=== PATIENT | female | born 1970 | race Caucasian/White ===

== ENCOUNTER 2024-01-11 14:08 | Inpatient (IN) | payer BC ==
[~2024-01-11] VITALS: Ht 165.1 cm; Wt 65.5 kg
[2024-01-11] VITALS (225 sets, daily range): BP systolic 136–179; BP diastolic 94–112; PULSE 112–137; TEMP 98.4; O2SAT 96–100
[2024-01-11 16:18] LABS: HEMATOCRIT 47.3 % (37.0-47.0); HEMOGLOBIN 16.5 g/dl (12.5-16.0); MEAN CELL VOLUME 89 fl (80.0-100.0); MEAN CORPUSCULAR HEMOGLOBIN 31 pg (27-31); MEAN CORPUSCULAR HGB CONC 35 g/dl (33.0-37.0); MEAN PLATELET VOLUME 10.9 fl (7.4-10.4); PLATELET COUNT 311 K/mm3 (130-400); RED BLOOD COUNT 5.32 M/mm3 (4.10-5.30); REDCELL DISTRIBUTION WIDTH-CV 12.3 % (11.5-14.5)
[2024-01-11 16:25] LABS: ACETONE,SERUM MODERATE
[2024-01-11 16:47] LABS: ALANINE AMINOTRANSFERASE 18 U/L (0-55); ALBUMIN 3.2 g/dL (3.5-5.0); ALKALINE PHOSPHATASE 270 U/L (40-150); ANION GAP 30 mmol/L (7-16); AST,SGOT 12 U/L (5-34); BILIRUBIN,TOTAL 0.5 mg/dL (0.2-1.2); BLOOD UREA NITROGEN 9 mg/dL (10-20); CALCIUM 10.3 mg/dL (8.4-10.2); CHLORIDE 97 mEq/L (98-107); SODIUM 134 mEq/L (136-145); TOTAL PROTEIN 8.4 g/dl (6.2-8.1)
[2024-01-11 16:59] LABS: ERYTHROCYTE SEDIMENTATION RATE 96 mm/hr (0-30)
[2024-01-11 17:07] LABS: C-REACTIVE PROTEIN 35.13 mg/dL (0.00-0.50); GLUCOSE 451 mg/dL (70-99)
[2024-01-11] MEDS ORDERED: NS 1,000 ML IV ONE ×2 (17:15→17:45)
[2024-01-11 17:30] LABS: BAND 9 % (0-10); LYMPHOCYTE 4 % (20.0-51.0); METAMYELOCYTE 1 % (0-0); NEUTROPHILS 84 % (42.0-75.2)
[2024-01-11] MEDS ORDERED: Insulin Human Regular/NS 100 ML IV ONE (17:30)
[2024-01-11 17:31] LABS: ANISOCYTOSIS 1+; POLYCHROMASIA 1+
[2024-01-11 17:32] LABS: PLATELET ESTIMATE INCREASED (NORMAL)
[2024-01-11] MEDS ORDERED: Ondansetron 4 MG/2 ML VIAL IV ONE (17:45)
[2024-01-11 17:52] LABS: URINE APPEARANCE CLOUDY (CLEAR/HAZY); URINE BLOOD NEGATIVE (NEGATIVE); URINE COLOR YELLOW (YELLOW); URINE GLUCOSE 3+ (NEGATIVE); URINE KETONE 4+ (NEGATIVE); URINE NITRATE NEGATIVE (NEGATIVE); URINE PROTEIN(semi-quant) 2+ (NEGATIVE); URINE UROBILINOGEN 0.2 E.U/dL (0.2-1.0)
[2024-01-11 18:25] LABS: COLLECTION METHOD CLEAN CATCH; URINE BACTERIA OCCASIONAL /hpf (NONE SEEN); URINE WBC >50 /hpf (0-2)
[2024-01-11] MEDS ORDERED: hydrALAZINE 20 MG/ML 1 ML VIAL IV PRN (18:45)
[2024-01-11] MEDS ORDERED: NS 1,000 ML IV SCH (18:45)
[2024-01-11] MEDS ORDERED: D5 1/2 NS & 20 mEq KCl 1,000 ML IV SCH (18:45)
[2024-01-11] MEDS ORDERED: Insulin Human Regular/NS 100 ML IV SCH (18:45)
--- NOTE | 2024-01-11 19:16 | NUR ---
Vancomycin Initial Dosing Pharmacy Note Ordering provider: Austyn Fisher MD Indication/duration: Sepsis secondary to urinary and skin sources LABS: SCr 1.3, CrCl~40, GFR 49 Recommendation: Will continue Vancomycin 1 gm IV q12h. Pharmacy will continue to closely monitor and check a trough on 01/13/24. Loading dose: 1.5 grams Maintenance dose: 1 gram every 12 hours Trough goal: 10-15 ug/mL
[2024-01-11 19:41] LABS: MAGNESIUM 2.3 mg/dL (1.6-2.6); PHOSPHOROUS 3.6 mg/dL (2.3-4.7)
[2024-01-11 19:48] LABS: TROPONIN-I 0.016 ng/mL (0.00-0.033)
[2024-01-11] MEDS ORDERED: Vancomycin 1.5 GM,Special Dose/Pharmacy Prepared 1.5 GM in NS 250 ML IV ONE (20:00)
[2024-01-11] MEDS ORDERED: Ondansetron 4 MG/2 ML VIAL IV PRN (20:45)
[2024-01-11] MEDS ORDERED: HYDROmorphone 0.5 MG/0.5 ML SYRINGE IV PRN (20:45)
[2024-01-11 22:47] LABS: CALCIUM 8.8 mg/dL (8.4-10.2); CREATININE, serum 0.93 mg/dL (0.57-1.11); POTASSIUM 3.1 mEq/L (3.5-4.5)
[2024-01-12] VITALS (1027 sets, daily range): BP systolic 132–150; BP diastolic 63–98; PULSE 92–118; TEMP 98.2–98.6; O2SAT 93–100
--- NOTE | 2024-01-12 00:07 | NUR ---
PATIENT ARRIVED TO UNIT AT 1945 ON 01/11/24. REPORT RECEIVED FROM [facility] RN. PATIENT ARRIVED TO UNIT BY BED, ALL BELONGINGS WITH PATIENT AT TIME OF TRANSFER. PATIENT MEDICATIONS TAKEN BY THIS RN AND SENT TO PHARMACY. CALL LIGHT WITHIN REACH. PATIENT ORIENTED TO ROOM. NO ACUTE EVENTS.
[2024-01-12 07:48] LABS: BASO % 0.2 % (0.0-2.0); EOS % 0.2 % (0.0-4.0); GRAN # 15.7 K/mm3 (1.4-6.5); GRAN % 87.7 % (42.2-75.2); HEMATOCRIT 38.1 % (37.0-47.0); LYMPH % 5.6 % (20.0-51.0); MEAN CELL VOLUME 85 fl (80.0-100.0); MEAN CORPUSCULAR HEMOGLOBIN 31 pg (27-31); MEAN CORPUSCULAR HGB CONC 37 g/dl (33.0-37.0); MEAN PLATELET VOLUME 10.2 fl (7.4-10.4); MONO % 5.6 % (1.7-9.3); PLATELET COUNT 248 K/mm3 (130-400); RED BLOOD COUNT 4.47 M/mm3 (4.10-5.30)
[2024-01-12 07:59] LABS: CALCIUM 8.8 mg/dL (8.4-10.2); CREATININE, serum 0.89 mg/dL (0.57-1.11)
[2024-01-12 08:03] LABS: POTASSIUM 2.9 mEq/L (3.5-4.5)
[2024-01-12] MEDS ORDERED: *Potassium Replacement Protocol MC SCH (09:15)
[2024-01-12] MEDS ORDERED: Potassium Bicarbonate/Citrate 20 MEQ Effervescent TAB PO SCH (09:15)
[2024-01-12] MEDS ORDERED: Famotidine 20 MG TAB PO SCH (10:25)
--- NOTE | 2024-01-12 10:43 | NUR ---
01/12/[id number] YO FEMALE ADMIT FOR INFECTED DIABETIC FOOT WOUND, NEW DIAGNOSIS OF DIABETES. GLUCOSE ON ADMIT 451 MG/DL, A1C 12.2%. PATIENT REPORTS NO FAMILY HISTORY OF DIABETES NOR GESTATIONAL DIABETES HISTORY. PATIENT REPORTS SIGNIFICANT, UNINTENTIONAL WEIGHT LOSS IN LAST 5 YEARS. REPORTED WEIGHT OF 108.8KG IN 2019 (240#) VERSUS CURRENT WEIGHT OF 65.5KG (144#). PATIENT'S IS A TYPE 2 DIABETIC AND REPORTS TAKING METFORMIN DAILY. PATIENT REFUSED TEACHING/DEMONSTRATION ON GLUCOMETER USE SHE STATES SHE ALREADY KNOWS HOW TO DO THIS AND FEELS COMFORTABLE DOING IT. REVIEWED NORMAL BLOOD SUGAR RANGES FOR FASTING (80-130MG/DL) AND 2 HR. POST MEAL (<180 MG/DL). REVIEWED 'HEALTHY PLATE' STYLE OF EATING AND RECOMMENDED PRIORITY MODIFICATIONS OF CUTTING OUT REGULAR SODA (PATIENT CURRENTLY DRINKS REGULAR COKE AND/OR DR. YANES DAILY), AND INCREASING INTAKE OF NON-STARCHY VEGETABLES AND LEAN PROTEINS. RECOMMENDED OUTPATIENT DIABETES EDUCATION. WILL SEND REFERRAL REQUEST TO PATIENT'S PCP DR. BETHEA AND ATTEMPT TO SEE THIS PATIENT IN AN OUTPATIENT SETTING. APPRECIATE THE CONSULT. KML,MS,RD,CSSD,LD
--- NOTE | 2024-01-12 10:48 | NUR ---
SW met with patient to complete initial assessment for discharge planning. Patient alert but drowsy. not present in room at time of assessment. Patient verified that she and Johnathan ([phone]) live in [place]. Patient denies havig completed a DPOA and chooses to not complete one at this time. Patient sees Dr. Raj White as her PCP and uses [facility] pharmacy. Patient denies having any DME and states that she is independent at home. No home services currently or in the past. Patient plans to return home with when medically stable. Discharge plan: Home
--- NOTE | 2024-01-12 15:21 | NUR ---
PT MEDICATIONS GIVEN TO PHARMACY TO KEEPING. RN ATTEPLTED TO CALL [facility] TO AQUIRE MEDICATION BUT THERE WAS NO ANSWER. PT IS RESTING IN BED. PAIN HAS BEEN ALLEVIATED. PT RESTING COMFORTABLY AWAKEN EASILY TO VOICE COMMANDS.
[2024-01-12 16:33] LABS: CALCIUM 8.8 mg/dL (8.4-10.2); CREATININE, serum 0.87 mg/dL (0.57-1.11); MAGNESIUM 1.5 mg/dL (1.6-2.6); POTASSIUM 3.2 mEq/L (3.5-4.5)
[2024-01-13] VITALS (624 sets, daily range): BP systolic 130–153; BP diastolic 72–94; PULSE 94–104; TEMP 97.5–98.4; O2SAT 94–100
[2024-01-13 00:44] LABS: ANION GAP 9 mmol/L (7-16); CALCIUM 8.6 mg/dL (8.4-10.2); CHLORIDE 114 mEq/L (98-107); CREATININE, serum 0.62 mg/dL (0.57-1.11); GLUCOSE 170 mg/dL (70-99); POTASSIUM 3.2 mEq/L (3.5-4.5); SODIUM 137 mEq/L (136-145)
[2024-01-13 00:52] LABS: BLOOD UREA NITROGEN < 5 mg/dL (10-20)
[2024-01-13] MEDS ORDERED: *Potassium Replacement Protocol MC SCH (01:00)
[2024-01-13] MEDS ORDERED: Potassium Chloride 100 ML IV SCH (01:00)
--- NOTE | 2024-01-13 07:00 | NUR ---
Report received from ELAINE Sun. Pt alert and oriented this AM. Does have some complaints on nausea and reflux; denies wanting to try some saltine crackers. PRN zofran available. PT remains on insulin gtt. Potassium replacement in progress. Call light in reach and bed alarm on. 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
[2024-01-13 08:12] LABS: BASO % 0.1 % (0.0-2.0); EOS % 0.3 % (0.0-4.0); GRAN # 9.6 K/mm3 (1.4-6.5); GRAN % 81.5 % (42.2-75.2); HEMOGLOBIN 13.3 g/dl (12.5-16.0); LYMPH # 1.2 K/mm3 (1.2-3.4); LYMPH % 10.1 % (20.0-51.0); MEAN CELL VOLUME 84 fl (80.0-100.0); MEAN CORPUSCULAR HEMOGLOBIN 32 pg (27-31); MEAN CORPUSCULAR HGB CONC 38 g/dl (33.0-37.0); MEAN PLATELET VOLUME 10.8 fl (7.4-10.4); MONO # 0.9 K/mm3 (0.1-0.6); MONO % 7.2 % (1.7-9.3); PLATELET COUNT 235 K/mm3 (130-400); RED BLOOD COUNT 4.22 M/mm3 (4.10-5.30); REDCELL DISTRIBUTION WIDTH-CV 12.1 % (11.5-14.5)
[2024-01-13 08:15] LABS: HEMATOCRIT 35.5 % (37.0-47.0)
[2024-01-13 08:28] LABS: ANION GAP 7 mmol/L (7-16); CALCIUM 8.4 mg/dL (8.4-10.2); CHLORIDE 112 mEq/L (98-107); GLUCOSE 164 mg/dL (70-99); MAGNESIUM 1.4 mg/dL (1.6-2.6); SODIUM 135 mEq/L (136-145)
[2024-01-13 08:51] LABS: BLOOD UREA NITROGEN < 5 mg/dL (10-20)
[2024-01-13] MEDS ORDERED: Glucagon 1 MG VIAL IM PRN (10:45)
[2024-01-13] MEDS ORDERED: Dextrose 50% Water 25 GM/50 ML SYRINGE IV PRN (10:45)
[2024-01-13] MEDS ORDERED: Acetaminophen 500 MG TAB PO PRN (10:45)
[2024-01-13] MEDS ORDERED: LR 1,000 ML IV SCH (10:45)
[2024-01-13] MEDS ORDERED: Dextrose (Glucose) 15 GM (4 x 3.75 GM) Chewable TABLET PACK PO PRN (10:45)
[2024-01-13] MEDS ORDERED: Magnesium Sulfate 4 GM/50 ML IV SOLN IV SCH (11:00)
[2024-01-13] MEDS ORDERED: Sodium Bicarbonate 650 MG TAB PO SCH (11:00)
[2024-01-13] MEDS ORDERED: Insulin Glargine-ygfn (Lantus) SQ SCH (11:00)
[2024-01-13] MEDS ORDERED: Insulin Lispro (HumaLOG) SQ SCH (12:00)
--- NOTE | 2024-01-13 13:55 | NUR ---
Pt taken to medical room 359 at this time. Report given to ELAINE Lewis prior to arrival. Pt met in room by jyotsna and ELAINE Lewis. Pt's clothing, cellphone, and cup transfered with pt. Pt states she is going to call her Johnathan and make him aware of transfer.
--- NOTE | 2024-01-13 14:00 | NUR ---
PATIENT ARRIVED FROM ICU AWAKE ALERT AND ORIENTED. DRESSING TO R FOOT CHANGED.
[2024-01-13] MEDS ORDERED: Magnesium Oxide 400 MG TAB PO SCH (17:00)
--- NOTE | 2024-01-13 19:40 | NUR ---
RECEIVED CHANGE OF SHIFT REPORT FROM DAY SHIFT NURSE.
--- NOTE | 2024-01-13 22:33 | NUR ---
REPORTS ZOFRAN GIVEN EARLIER HELPED "SOME". REPORTS WILL WANT ZOFRAN AGAIN LATER WHEN NEXT AVAILABLE.
--- NOTE | 2024-01-14 01:30 | NUR ---
DRSG TO RIGHT FOOT CHANGE PER PATIENT REQUEST, COMPLAINED OF DRAINAGE COMING THROUGH KERLIX GAUZE DRSG. STERILE SALINE APPLIED TO TELFA THAT STUCK TO OPEN SKIN AREA OF INNER DISTAL RIGHT FOOT SEMI ODOROUS DARK DISCOLORED SKIN OBSERVED WITH DARK RED/BROWN OOZING DRAINAGE FROM OPEN SKIN AREA. PATIENT TOLERATED DRSG CHANGE, APPLIED TELFA DISCOLORED DRAINING AREA, COVERED WITH ABD, KERLIX WRAP AND WALLY WRAP FOR OUTER COVERING. PATIENT STATED THAT AFFECTED RIGHT FOOT "LOOKS BETTER THAN IT DID" ON ADMISSION. NO OTHER NEEDS REPORTED AT THIS TIME.
[2024-01-14 03:40] VITALS: BP 167/91; PULSE 98; TEMP 98.4
[2024-01-14 07:24] LABS: BASO % 0.1 % (0.0-2.0); EOS # 0.1 K/mm3 (0.0-0.7); EOS % 0.7 % (0.0-4.0); GRAN # 6.3 K/mm3 (1.4-6.5); GRAN % 76.8 % (42.2-75.2); HEMOGLOBIN 13.7 g/dl (12.5-16.0); LYMPH # 1.2 K/mm3 (1.2-3.4); LYMPH % 14.4 % (20.0-51.0); MEAN CELL VOLUME 85 fl (80.0-100.0); MEAN CORPUSCULAR HEMOGLOBIN 31 pg (27-31); MEAN CORPUSCULAR HGB CONC 36 g/dl (33.0-37.0); MEAN PLATELET VOLUME 10.3 fl (7.4-10.4); MONO # 0.6 K/mm3 (0.1-0.6); MONO % 7.1 % (1.7-9.3); PLATELET COUNT 270 K/mm3 (130-400); RED BLOOD COUNT 4.47 M/mm3 (4.10-5.30); REDCELL DISTRIBUTION WIDTH-CV 12.2 % (11.5-14.5)
[2024-01-14 07:41] VITALS: BP 173/71; PULSE 92; TEMP 97.7
--- NOTE | 2024-01-14 07:43 | NUR ---
CHANGE OF SHIFT REPORT GIVEN TO DAY SHIFT NURSETAHIR.
[2024-01-14 08:38] LABS: ANION GAP 12 mmol/L (7-16); CALCIUM 8.6 mg/dL (8.4-10.2); CHLORIDE 109 mEq/L (98-107); CREATININE, serum 0.64 mg/dL (0.57-1.11); GLUCOSE 194 mg/dL (70-99); MAGNESIUM 2.1 mg/dL (1.6-2.6); POTASSIUM 3.6 mEq/L (3.5-4.5); SODIUM 139 mEq/L (136-145)
[2024-01-14 08:39] LABS: BLOOD UREA NITROGEN < 5 mg/dL (10-20)
[2024-01-14] MEDS ORDERED: Fluconazole 100 MG TAB PO SCH (09:30)
[2024-01-14] MEDS ORDERED: DIFLUCAN200 MG PO (09:39)
[2024-01-14] MEDS ORDERED: ZOFRAN 4MG T4 MG/TAB PO (09:40)
[2024-01-14] MEDS ORDERED: GLUCOPHAGE500 MG/TAB PO (09:40)
[2024-01-14] MEDS ORDERED: CONTROL SOLUTI1 EAC1 MC (09:41)
[2024-01-14] MEDS ORDERED: LANCETS MC (09:41)
[2024-01-14] MEDS ORDERED: GLUCAGON EMERGEN1 M1 SQ (09:41)
[2024-01-14] MEDS ORDERED: AMOXICILLIN875 MG PO (09:41)
[2024-01-14] MEDS ORDERED: GLUCOSE TEST ST1 DEV MC (09:41)
[2024-01-14] MEDS ORDERED: GLUTOSE 1515 GM PO (09:41)
[2024-01-14] MEDS ORDERED: BD ALCOHOL1 SWA MC (09:41)
[2024-01-14] MEDS ORDERED: FREESTYLE PREC1 EAC5 MC (09:41)
[2024-01-14] MEDS ORDERED: PROTONIX 40MG T40 MG PO (09:42)
[2024-01-14] MEDS ORDERED: ZESTRIL 5MG5 MG PO (09:44)
[2024-01-14] MEDS ORDERED: TUMS ULTRA ST1000 MG PO (09:45)
--- NOTE | 2024-01-14 10:52 | NUR ---
home health care social worker was notified by patient's nurse, Joshua, that patient was needing a FWW upon discharge and she was medically ready for discharge today. Patient's nurse reported patient was going to [employer] a walker but Joshua mentioned she may be able to get a walker through the insurance. SW contacted [facility] and confirmed they have a walker available. JOCELIN met with patient and presented the options of running the walker through the insurance or [facility] currently has a walker available to borrow. 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 JOCELIN secure emailed the walker order and supporting documents to [facility]. [facility] notified social worker masters the walker was ready for [employer]. SW notified patient's nurse and ensured they had the address to [facility] to [employer] picker walker. DIscharge plan: Home
--- NOTE | 2024-01-14 12:10 | NUR ---
PATIENT GIVEN DSICHARGE INSTRUCTINS AND EDUCATION. THIS RN CHANGED PATIENTS DRESSING TO R FOOT AND DEMONSTRATED TO PATIENT STEP BY STEP INSTRUCTIONS ON HOW TO CHANGE HER DRESSING. PATIENT PROIVDED WITH SUPPLIES FOR DRESSING CHANGES. PATIENT EDUCATED ON HOW TO CHECK BLOOD SUGAR AT HOME AND WHAT TO DO IF BLOOD SUGAR REACHES TOO HIGH OR LOW. PATIENT IV REMOVED. HOME MEDS SIGNED AND RETURNED TO PATIENT.PATIENT TAKEN VIA WHEELCHAIR TO ER ENTRANCE WHERE SHE LEFT IN STABLE CONDITION.
== END 2024-01-14 12:10 | disposition home or self-care (01) | DRG 871 ==
LOC: COL.ER 14:08 → ICU 18:20 → EDBEDREQ 18:48 → ICU 19:46 → MEDICAL 01-13 14:20 → ICU 01-13 14:20 → MEDICAL 01-14 12:10
PROVIDERS: Emergency Medicine; Nurse Practitioner Family; ADMIT Internal Medicine
DX: A41.9 Sepsis, unspecified organism (principal); E11.10 Type 2 diabetes mellitus with ketoacidosis without coma; L03.115 Cellulitis of right lower limb; N17.9 Acute kidney failure, unspecified; N39.0 Urinary tract infection, site not specified; D50.9 Iron deficiency anemia, unspecified; R74.8 Abnormal levels of other serum enzymes; E83.52 Hypercalcemia; E11.9 Type 2 diabetes mellitus without complications; L97.519 Non-pressure chronic ulcer of other part of right foot with unspecified severity; L13.9 Bullous disorder, unspecified; E11.621 Type 2 diabetes mellitus with foot ulcer; I10 Essential (primary) hypertension; L03.031 Cellulitis of right toe; W22.8XXA Striking against or struck by other objects, initial encounter; Y92.009 Unspecified place in unspecified non-institutional (private) residence as the place of occurrence of the external cause; Z98.49 Cataract extraction status, unspecified eye; Z80.0 Family history of malignant neoplasm of digestive organs; Z91.048 Other nonmedicinal substance allergy status
CPT/HCPCS: OP; J0737; J1171; J1815; J2405; J2543; J3370; J3475; J3480; J7030; J7050; J7120